=== PATIENT | male | born 1970 | race Caucasian/White ===

== ENCOUNTER 2022-07-06 16:57 | Emergency (ER) | payer MEDICARE, OTHER ==
[~2022-07-06] VITALS: Ht 170.2 cm; Wt 77.1 kg
[2022-07-06] MEDS ORDERED: CEFTRIAXONE 1 G in IV DEXTROSE 5% 50 ML IV ONE (17:15)
[2022-07-06] MEDS ORDERED: IV NORMAL SALINE 1000 ML BAG IV ONE (17:15)
--- NOTE | 2022-07-06 17:22 | NUR ---
51 years old male alert, oriented x4 presents to er c/o blood in urine.
[2022-07-06] MEDS ORDERED: CEFTRIAXONE /D5W 50ML IVPB **ER PYXIS IV ONE (17:30)
[2022-07-06] MEDS ORDERED: ALBU0.63 NEB (17:32)
[2022-07-06] MEDS ORDERED: TIZA4TAB5 PO (17:32)
[2022-07-06] MEDS ORDERED: APIX5TAB PO (17:32)
[2022-07-06] MEDS ORDERED: FERR325T30 PO (17:32)
[2022-07-06] MEDS ORDERED: LORA0.5T48 PO (17:32)
[2022-07-06] MEDS ORDERED: IBUP-1953 PO (17:32)
[2022-07-06] MEDS ORDERED: HYDR50TA62 PO (17:32)
[2022-07-06] MEDS ORDERED: GABA800T11 PO (17:32)
[2022-07-06] MEDS ORDERED: DULO60CA45 PO (17:32)
[2022-07-06] MEDS ORDERED: METO-356 PO (17:32)
[2022-07-06] MEDS ORDERED: TRAZ-257 PO (17:32)
[2022-07-06] MEDS ORDERED: ALLO100T PO (17:32)
[2022-07-06] MEDS ORDERED: QUET200T PO (17:32)
[2022-07-06] MEDS ORDERED: GABA-532 PO (17:32)
[2022-07-06] MEDS ORDERED: LACT1CAP69 PO (17:32)
[2022-07-06 17:33] LABS: HEMATOCRIT 43.3 % (36.7-47.1); MEAN CORPUSCULAR VOLUME 86.4 fL (73.0-96.2); PLATELET COUNT (AUTO) 407 K/uL (152-348)
[2022-07-06 17:52] LABS: CREATININE 0.9 mg/dL (0.6-1.3); POTASSIUM 3.9 mmol/L (3.5-5.1)
[2022-07-06 17:59] LABS: BILIRUBIN,DIRECT 0.2 mg/dL (0.0-0.2); BILIRUBIN,TOTAL 0.7 mg/dL (0.2-1.0); TOTAL PROTEIN, SERUM 7.5 g/dL (6.4-8.2)
[2022-07-06 18:07] LABS: *BILIRUBIN,URIN 1+ (NEGATIVE); *BLOOD, URINE NEGATIVE (NEGATIVE); *CLARITY,URINE CLEAR (CLEAR); *COLOR,URINE YELLOW (YELLOW); *KETONES,URINE TRACE (NEGATIVE); LEUKOCYTE ESTERASE ,URINE 1+ (NEGATIVE); NITRITE, URINE NEGATIVE (NEGATIVE); PH,URINE 6.5 (5.0-8.0); UGLUCOSE NEGATIVE (NEGATIVE)
[2022-07-06] MEDS ORDERED: ACET-2605 PO (19:04)
[2022-07-06] MEDS ORDERED: BENZ-13 PO (19:04)
--- NOTE | 2022-07-06 19:06 | NUR ---
patient with positive covid asymptomatic vss tolerated iv antibiotic well report given to incoming RN all questions answered.
--- NOTE | 2022-07-06 19:26 | NUR ---
Patient discharged to home in stable condition. Written and verbal after care instructions given. Patient verbalizes understanding of instructions. Stressed follow up or return to ER for worsening s/s.
[2022-07-06 19:27] VITALS: BP 120/78
== END 2022-07-06 19:28 | disposition home or self-care (01) ==
LOC: ER 16:57
DX: U07.1 COVID-19 (principal); N39.0 Urinary tract infection, site not specified; F15.10 Other stimulant abuse, uncomplicated; F31.9 Bipolar disorder, unspecified; F17.200 Nicotine dependence, unspecified, uncomplicated; N31.9 Neuromuscular dysfunction of bladder, unspecified; Z87.440 Personal history of urinary (tract) infections; Z98.1 Arthrodesis status; Z79.899 Other long term (current) drug therapy
CPT/HCPCS: 99284; 96365; 71045; 87426; 80076; 80048; 81001; 83690; 85025; 36415; J0696; J7040; A4663